=== PATIENT | male | born 1995 | race Caucasian/White ===

== ENCOUNTER 2019-05-10 11:44 | Outpatient (CLI) | payer OTHER ==
--- NOTE | 2019-05-11 17:06 | Ultrasound Report ---
Reason: MARFAN'S WITH SKELETAL MANIFESTATIONS Procedure Date: 05/10/2019 Accession Number: [id number] / [id number] Procedure: US - Aorta Screening CPT Code: FULL RESULT: EXAM: AORTIC DOPPLER ULTRASOUND EXAM DATE: 05/10/2019 12:00 PM. CLINICAL HISTORY: MARFANS WITH SKELETAL MANIFESTATIONS. COMPARISON: None. TECHNIQUE: Real-time sonographic imaging of retroperitoneal vascular structures, including color-flow, Doppler flow and spectral analysis was performed by the abrasive band winder. Multiple consumer sales representative static images were saved for review. FINDINGS: Aorta: The abdominal aorta was adequately visualized. No evidence for abdominal aortic aneurysm. Proximal: 1.7 cm Mid: 1.5 x 1.7 cm Distal: 1.3 x 1.9 cm Iliac Vessels: The visualized proximal common iliac arteries are normal in caliber. Other: None. IMPRESSION: No abdominal aortic aneurysm. [facility]
== END 2019-05-10 11:45 | disposition home or self-care (01) ==
LOC: DI 11:44
PROVIDERS: ATTEND Internal Medicine
DX: Q87.43 Marfan syndrome with skeletal manifestation (principal)
CPT/HCPCS: 76706

== ENCOUNTER 2020-06-30 13:32 | Emergency (ER) | payer OTHER ==
--- NOTE | 2020-06-30 14:11 | XRAY Report ---
PROCEDURE: Wrist 3 View LT INDICATIONS: injury TECHNIQUE: 3 views of the wrist were acquired. COMPARISON: None FINDINGS: Bones: No fractures or dislocations. No suspicious bony lesions. Soft tissues: No suspicious soft tissue calcifications. IMPRESSION: No visualized acute fracture or dislocation. However, occult injury cannot be excluded. Recommend kendy rt interval imaging follow-up in 7-10 days as clinically indicated for additional evaluation. Reviewed by: Sissy Vogel MD on 06/30/2020 2:10 PM PDT Approved by: Sissy Vogel MD on 06/30/2020 2:10 PM PDT Station ID: [id number]
--- NOTE | 2020-06-30 14:50 | ED Physician Documentation ---
PD HPI UPPER EXT INJURY - Stated complaint Stated Complaint: LT WRIST INJ - Chief complaint Chief Complaint: Trauma Ext - History obtained from History obtained from: Patient, Family - History of Present Illness Location: Left, Wrist Type of injury: Fall Where injury occurred: Home Timing - onset: Yesterday Timing - duration: Days (1) Timing - details: Abrupt onset, Still present Improved by: Rest, Ice, Immobilization Worsened by: Moving, Palpating Associated symptoms: Swelling. No: Weakness, Numbness, Tingling Contributing factors: No: Anticoagulated Similar symptoms before: Has not had sx before Recently seen: Not recently seen - Additonal information Additional information: Previously well 24-year-old male jumped over a fence yesterday came down onto his left wrist outstretched and now has pain to the dorsum of the wrist. There is pain with movement of the wrist and to direct palpation over the anatomic snuffbox. Review of Systems Constitutional: denies: Fever Eyes: denies: Decreased vision Ears: denies: Ear pain Nose: denies: Congestion Throat: denies: Sore throat Cardiac: denies: Chest pain / pressure Respiratory: denies: Cough GI: denies: Vomiting Musculoskeletal: reports: Joint pain, Joint swelling PD PAST MEDICAL HISTORY - Past Medical History Past Medical History: Yes Cardiovascular: None Respiratory: None Neuro: None Endocrine/Autoimmune: None GI: None : None HEENT: None Psych: None Musculoskeletal: None Derm: None - Past Surgical History Past Surgical History: No - Allergies Allergies/Adverse Reactions: Allergies Allergy/AdvReac Type Severity Reaction Status Date / Time No Known Drug Allergies Allergy Verified 06/30/20 13:50 - Social History Does the pt smoke?: No Smoking Status: Never smoker Does the pt drink ETOH?: No Does the pt have substance abuse?: No - Immunizations Immunizations are current?: Yes - POLST Patient has POLST: No PD ED PE NORMAL - Vitals Vital signs reviewed: Yes (Normal) - General General: Alert and oriented X 3, No acute distress, Well developed/nourished, Other (24-year-old male sitting splinting his left wrist with his right hand) - HEENT HEENT: Atraumatic, PERRL - Neck Neck: Supple, no meningeal sign, No bony TTP - Respiratory Respiratory: No respiratory distress - Derm Derm: Normal color, Warm and dry, No rash - Extremities Extremities: No deformity, Other (There is swelling and point tenderness directly over the anatomic snuffbox and there is pain to flexion extension of the wrist to the distal radius. The distal neurovascular components are intact the elbow is without injury.) - Neuro Neuro: Alert and oriented X 3, book or script editor 2-12 intact, No motor deficit, No sensory deficit, Normal speech Eye Opening: Spontaneous Motor: Obeys Commands Verbal: Oriented GCS Score: 15 - Psych Psych: Normal mood, Normal affect Results - Vitals Vitals: Vital Signs - 24 hr 06/30/20 06/30/20 13:50 14:44 Temperature 36.6 C 36.6 C Heart Rate 79 72 Respiratory 16 16 Rate Blood Pressure 127/80 124/80 O2 Saturation 98 100 Oxygen O2 Source Room air - Rads (name of study) left wrist Radiology: Prelim report reviewed (Impression: No visualized acute fracture or dislocation. However, occult injury cannot be excluded. Recommend short interval imaging follow-up in 7 to 10 days as clinically indicated for additional evaluation.), EMP read indepedently, See rad report Procedures - Splint (location) left wrist Splint applied by: Tech Type of splint: Fiberglass, Volar cock up Other: Patient tolerated well, No complications, Neurovascular intact, Good alignment PD MEDICAL DECISION MAKING - ED course Complexity details: reviewed results, re-evaluated patient, considered differential, d/w patient, d/w family ED course: 24 y/o male with a sprained wrist is placed into a volar splint and he will need a repeat image in 7-10 days with pain in the anatomic snuff box. Departure - Departure Disposition: 01 Home, Self Care Clinical Impression: Left wrist sprain Qualifiers: Encounter type: initial encounter Qualified Code(s): S63.502A - Unspecified sprain of left wrist, initial encounter Condition: Stable Instructions: ED Sprain Wrist Follow-Up: [facility] [Provider Group] Comments: wear the splint until your follow up with orthopedics. You are tender in a specific area of the wrist to be concerned about occult navicular fracture and the recommendation is to follow up in 7-10 days for repeat x-ray.
[2020-06-30 15:03] VITALS: BP 122/78
== END 2020-06-30 15:13 | disposition home or self-care (01) ==
LOC: ED 13:32
DX: S63.502A Unspecified sprain of left wrist, initial encounter (principal); X58.XXXA Exposure to other specified factors, initial encounter; Y93.39 Activity, other involving climbing, rappelling and jumping off; Y92.009 Unspecified place in unspecified non-institutional (private) residence as the place of occurrence of the external cause
CPT/HCPCS: 29125; 99282; 99283